=== PATIENT | male | born 1990 | race Caucasian/White ===

== ENCOUNTER → 2018-05-05 | Emergency (ER) | payer OTHER ==
[~2018-05-05] VITALS: Ht 180.3 cm; Wt 98.0 kg
[~2018-05-05] MED LIST: ALBU8.5H8 INH; ALBUTEROL 0.083% (NEB) 2.5 MG/3 ML AMP HHN STA; INSU100C SQ; IPRATROPIUM (NEB) 0.5 MG/2.5 ML AMP HHN ONE; LANT3I SC; NAPR-985 PO; ONDA4TAB14 PO; ONDANSETRON 4 MG INJ IV STA; PANT40VI7 PO; PROM6.2515 PO; PSEU-79 PO; SOD CHLORIDE 0.9% 1,000 ML IV STA
[2018-05-05 08:44] VITALS: Ht 180.3 cm; Wt 98.0 kg
[2018-05-05 10:24] VITALS: BP 124/76; PULSE 74; RESP 19
--- NOTE | 2018-05-05 10:44 | ERD ---
ER Documentation Chief Complaint Chief Complaint flu like symptoms x 4 days HPI 28-year-old male presenting with flulike symptoms times 4 days. Patient has had mildly decreased appetite with nausea. Patient has had dry cough with runny nose but no fever. He took Tylenol earlier today. He has been alternating between feeling hot and cold. He is diabetic. Patient is insulin-dependent type 1. He is allergic to cefaclor. Surgical history denies. Social history smokes marijuana daily. ROS All systems reviewed and are negative except as per history of present illness. Medications Home Meds Active Scripts Albuterol Sulfate* (Proair HFA*) 8.5 Gm Hfa.aer.ad, 2 PUFF INH Q4, #1 INHALER Prov:MICAH GARZA PA-C 05/05/18 Naproxen* (Naprosyn*) 500 Mg Tablet, 500 MG PO BID PRN for PAIN AND/OR INFLAMMATION, #30 TAB Prov:MICAH GARZA PA-C 05/05/18 Pseudoephedrine Hcl* (Suphedrin*) 30 Mg Tablet, 30 MG PO Q6 PRN for CONGESTION, #30 TAB Prov:MICAH GARZA PA-C 05/05/18 Ondansetron (Ondansetron Odt) 4 Mg Tab.rapdis, 4 MG PO Q6H PRN for NAUSEA AND/OR VOMITING, #10 TAB Prov:MICAH GARZA PA-C 05/05/18 Pantoprazole* (Protonix* IV) 40 Mg Soln, 40 MG PO DAILY@06 for 30 Days, #30 Prov:SYBIL BANKS 01/04/16 Reported Medications Insulin Glargine* (Lantus*) 100 Unit/Ml Soln, 24 UNITS SC QHS, #1 VIAL 01/01/16 Insulin Lispro (Humalog) 100 Unit/1 Ml Cartridge, 10 UNITS SQ AC MEALS TID 01/01/16 Allergies Allergies: Coded Allergies: cefaclor (Verified Allergy, Unknown, 05/05/18) PMhx/Soc Medical and Surgical Hx: pt denies Medical Hx, pt denies Surgical Hx History of Surgery: No Anesthesia Reaction: No Hx Neurological Disorder: No Hx Respiratory Disorders: No Hx Cardiac Disorders: No Hx Psychiatric Problems: No Hx Miscellaneous Medical Probl: No Hx Alcohol Use: Yes Hx Substance Use: No Hx Tobacco Use: Yes Smoking Status: Current every day smoker FmHx Family History: No diabetes, No coronary disease, No other Physical Exam Vitals Vital Signs Date Temp Pulse Resp B/P (MAP) Pulse Ox O2 O2 Flow FiO2 Time Delivery Rate 05/05/18 97.7 74 19 124/76 100 Room Air 10:24 (92) 05/05/18 82 20 96 21 09:31 05/05/18 97.5 88 18 141/92 95 08:44 (108) Physical Exam GENERAL: The patient is well-appearing, well-nourished, in no acute distress HEENT: Atraumatic. Conjunctivae are pink. Pupils equal, round, and reactive to light. There is no scleral icterus. Tympanic membranes clear bilaterally. Oropharynx clear. NECK: C-spine is soft and supple. There is no meningismus. There is no cervical lymphadenopathy. CHEST: Clear to auscultation bilaterally. There are no rales, wheezes or rhonchi. HEART: Regular rate and rhythm. No murmurs, clicks, rubs or gallops. No S3 or S4. ABDOMEN:Soft, nontender and nondistended. Good bowel sounds. No rebound or guarding. No gross peritonitis. No gross organomegaly or masses. Result Diagram: 05/05/1890505/05/18905 Results 24 hrs Laboratory Tests Test 05/05/18 09:06 White Blood Count 6.6 10^3/ul Red Blood Count 5.18 10^6/ul Hemoglobin 15.3 g/dl Hematocrit 43.7 % Mean Corpuscular Volume 84.4 fl Mean Corpuscular Hemoglobin 29.5 pg Mean Corpuscular Hemoglobin Concent 35.0 g/dl Red Cell Distribution Width 11.2 % Platelet Count 293 10^3/UL Mean Platelet Volume 9.6 fl Immature Granulocytes % 0.200 % Neutrophils % 58.5 % Lymphocytes % 25.4 % Monocytes % 14.0 % Eosinophils % 1.1 % Basophils % 0.8 % Nucleated Red Blood Cells % 0.0 /100WBC Immature Granulocytes # 0.010 10^3/ul Neutrophils # 3.9 10^3/ul Lymphocytes # 1.7 10^3/ul Monocytes # 0.9 10^3/ul Eosinophils # 0.1 10^3/ul Basophils # 0.1 10^3/ul Nucleated Red Blood Cells # 0.0 10^3/ul Urine Color STRAW Urine Clarity CLEAR Urine pH 6.0 Urine Specific [place] 1.011 Urine Ketones 1+ mg/dL Urine Nitrite NEGATIVE mg/dL Urine Bilirubin NEGATIVE mg/dL Urine Urobilinogen NEGATIVE mg/dL Urine Leukocyte Esterase NEGATIVE Jeff/ul Urine Hemoglobin NEGATIVE mg/dL Urine Glucose 3+ mg/dL Urine Total Protein NEGATIVE mg/dl Sodium Level 135 mmol/L Potassium Level 3.9 mmol/L Chloride Level 97 mmol/L Carbon Dioxide Level 28 mmol/L Anion Gap 10 Blood Urea Nitrogen 10 mg/dl Creatinine 0.57 mg/dl Est Glomerular Filtrat Rate mL/min > 60 mL/min Glucose Level 300 mg/dl Calcium Level 9.1 mg/dl Total Bilirubin 0.8 mg/dl Direct Bilirubin 0.00 mg/dl Indirect Bilirubin 0.8 mg/dl Aspartate Amino Transf (AST/SGOT) 27 IU/L Alanine Aminotransferase (ALT/SGPT) 27 IU/L Alkaline Phosphatase 131 IU/L Total Protein 8.0 g/dl Albumin 4.6 g/dl Globulin 3.40 g/dl Albumin/Globulin Ratio 1.35 Lipase 14 U/L Current Medications Medications Dose Sig/Jesusita Start Time Status Last (Trade) Ordered Route PRN Stop Time Admin Dose Reason Admin Sodium 1,000 ml @ Q1H STAT 05/05/18 DC 05/05/18 Chloride 1,000 mls/hr IV 08:54 05/05/18 09:02 09:53 Ondansetron 4 mg ONCE STAT 05/05/18 DC 05/05/18 HCl (Zofran IV 08:54 05/05/18 09:02 Inj) 08:55 Albuterol 5 mg ONCE STAT 05/05/18 DC 05/05/18 (Proventil HHN 09:19 05/05/18 09:31 0.083% (Neb)) 09:20 Ipratropium 0.5 mg ONCE ONCE 05/05/18 DC 05/05/18 [place] [facility] 09:30 05/05/18 09:31 (Atrovent 09:31 0.02% (Neb)) Procedures/MDM ER course: influenza negative. blood work stable. DIAGNOSTIC IMAGING REPORT Patient: NAIMA URBINA : 1990 Age: 28 Sex: M MR #: [id number] [facility] #: [id number] DOS: 05/05/18 0919 Ordering MD: NAVJOT GARZA PA-C Location: [facility] Room/Bed: PROCEDURE: XR Chest. CLINICAL INDICATION: Cough TECHNIQUE: A single AP view of the chest was obtained. COMPARISON: CR CHEST 01/01/2016 FINDINGS: No focal airspace opacification, pleural effusion or pneumothorax is seen. The cardiomediastinal silhouette is within normal limits for size. The osseous structures are unremarkable. IMPRESSION: Unremarkable chest x-ray. No significant interval change. MDM: 28-year-old male presenting with cough. Patient's blood work is stable and patient likely has viral syndrome. Patient will be discharged with supportive medications. I have low suspicion for respiratory distress or hypoxia. Patient's vitals are stable. Patient is told symptoms change or worsen to return the ER immediately. Departure Diagnosis: Primary Impression: Upper respiratory infection Condition: Stable Patient Instructions: Uri, Viral, No Abx (Adult), Vomiting (6Y-Adult) Referrals: [facility] YOU HAVE RECEIVED A MEDICAL SCREENING EXAM AND THE RESULTS INDICATE THAT YOU DO NOT HAVE A CONDITION THAT REQUIRES URGENT TREATMENT IN THE EMERGENCY DEPARTMENT. FURTHER EVALUATION AND TREATMENT OF YOUR CONDITION CAN WAIT UNTIL YOU ARE SEEN IN YOUR DOCTORS OFFICE WITHIN THE NEXT 1-2 DAYS. IT IS YOUR RESPONSIBILITY TO MAKE AN APPOINTMENT FOR FOLOW-UP CARE. IF YOU HAVE A PRIMARY DOCTOR --you should call your primary doctor and schedule an appointment IF YOU DO NOT HAVE A PRIMARY DOCTOR YOU CAN CALL OUR PHYSICIAN REFERRAL HOTLINE AT IF YOU CAN NOT AFFORD TO SEE A PHYSICIAN YOU CAN CHOSE FROM THE FOLLOWING [facility] [address] [facility]. [facility] [address] [facility]. [email or web address] [address] [facility]. [facility] [address] [facility]. [facility] [place] [address] [facility]. [facility]. [address] [place] Additional Instructions: FOLLOW UP WITH YOUR PRIMARY CARE PHYSICIAN TOMORROW.Return to this facility if you are not improving as expected. MICAH GARZA PA-C May 05, 2018 10:41
== END | disposition home or self-care (01) ==
LOC: FTE 08:39
DX: J06.9 Acute upper respiratory infection, unspecified (principal); R11.0 Nausea; F17.210 Nicotine dependence, cigarettes, uncomplicated
CPT/HCPCS: 36415; 71045; 80053; 81003; 83690; 85025; 87400; 94664; 96361; 96374; J2405; J7030; Z7502; Z7610